=== PATIENT | male | born 1930 | race Caucasian/White ===

== ENCOUNTER 2016-10-15 16:22 | Inpatient (IN) | payer MEDICARE, BC ==
[~2016-10-15] VITALS: Ht 172.7 cm; Wt 67.5 kg
--- NOTE | ~2016-10-15 | EKG ---
PATIENT: BRANDON GRAY UNIT #: [id number] Ventricular Rate: 54 BPM Atrial Rate: 54 BPM P-R Interval: 156 ms QRS Duration: 92 ms Q-T Interval: 452 ms QTC Calculation(Bezet): 428 ms P [place]: 22 degrees Calculated R [place]: -21 degrees Calculated T [place]: -6 degrees Diagnosis Line: Sinus bradycardia with occasional Premature Diagnosis Line: ventricular complexes Diagnosis Line: Inferior infarct , age undetermined Diagnosis Line: Abnormal ECG Diagnosis Line: When compared with ECG of 17-OCT-2016 05:59, Diagnosis Line: (unconfirmed) Diagnosis Line: Inferior infarct is now Present Diagnosis Line: Confirmed by ADRIAN SUNG MD ([id number]) on 10/18/2016 Diagnosis Line: 7:54:47 PM INTERPRETING MD: PINEDA WEATHERS
--- NOTE | ~2016-10-15 | EKG ---
PATIENT: BRANDON GRAY UNIT #: [id number] Ventricular Rate: 68 BPM Atrial Rate: 68 BPM P-R Interval: 156 ms QRS Duration: 94 ms Q-T Interval: 438 ms QTC Calculation(Bezet): 465 ms P [place]: 62 degrees Calculated T [place]: 4 degrees Diagnosis Line: Sinus rhythm with frequent Premature ventricular Diagnosis Line: complexes in a pattern of bigeminy Diagnosis Line: Otherwise normal ECG Diagnosis Line: No previous ECGs available Diagnosis Line: Confirmed by ADRIAN SUNG MD ([id number]) on 10/18/2016 Diagnosis Line: 7:49:01 PM INTERPRETING MD: PINEDA WEATHERS
--- NOTE | ~2016-10-15 | US37 ---
[facility] A Service of [facility] RADIOLOGY TEXT RESULTS PATIENT: BRANDON GRAY LOCATION: [facility] 579-01 : 31 UNIT #: [id number] AGE: [address]: Tiffanie Angulo MD SEX: M ORDER DR: [id number] [facility] [address] [place], [place] [address] [id number] I MR#: [id number] Acc #: [id number] NAME: BRANDON GRAY : 1930 SEX: M STUDY DATE/TIME: 10/16/2016 16:51 UNIT: [facility] ROOM: [facility] STUDY DESCRIPTION: US Carotid W/Doppler Bilateral Attending Physician: Tiffanie Angulo M.D. Ordering Physician: Jonel Kaplan M.D. Primary Care Physician: Miguelangel Danielle M.D. MEDICAL IMAGING REPORT This report is preliminary unless electronic signature is present EXAM Carotid duplex scan, 10/16/2016. HISTORY Dizziness. FINDINGS The right common carotid artery has a small amount of heterogeneous plaque. There is a small amount of heterogeneous plaque in the right internal and external carotid arteries. The right internal carotid artery is very tortuous and, therefore, more difficult to assess. Peak systolic velocity in the mid right internal carotid artery is 47 cm/sec, with an end diastolic velocity of 13 cm/sec. The ICA:CCA ratio on the right is 1.6. Peak systolic velocity in the right external carotid artery is 46 cm/sec. The right vertebral artery is patent with antegrade flow. The left common carotid artery has a small amount of heterogeneous plaque. There is a small amount of heterogeneous plaque in the left internal and external carotid arteries. The left internal carotid artery is also very tortuous and, therefore, more difficult to assess. Peak systolic velocity in the mid left internal carotid artery is 86 cm/sec, with an end diastolic velocity of 24 cm/sec. The ICA:CCA ratio on the left is 1.9. Peak systolic velocity in the left external carotid artery is 54 cm/sec. The left vertebral artery is patent with antegrade flow. IMPRESSION Tortuous internal carotid arteries bilaterally, making assessment difficult. Plaque, but no significant stenosis (less than 50%) demonstrated in the internal or external carotid arteries on either side. Patent vertebral arteries bilaterally with antegrade flow. [facility] A Service of [facility] RADIOLOGY TEXT RESULTS PATIENT: BRANDON GRAY LOCATION: [place] [address] : [birth year] UNIT #: [id number] AGE: [address]: Tiffanie Angulo MD SEX: M ORDER DR: Dictated by... Roberto Carlos Qiu M.D. THIS IS AN ELECTRONICALLY VERIFIED REPORT Roberto Carlos Qiu M.D. at 10/19/2016 7:27 AM Yumiko TD: 10/17/2016 19:08 JOB #: [id number] MEDICAL IMAGING REPORT Page 1 of 1 COPY
--- NOTE | ~2016-10-15 | CR72 ---
[facility] A Service of [facility] RADIOLOGY TEXT RESULTS PATIENT: BRANDON GRAY LOCATION: [facility] 579-01 : 31 UNIT #: [id number] AGE: [address]: Tiffanie Angulo MD SEX: M ORDER DR: [id number] [facility] [address]. [place], [place] [address] [id number] I MR#: [id number] Acc #: [id number] NAME: BRANDON GRAY : 1930 SEX: M STUDY DATE/TIME: 10/15/2016 16:58 UNIT: [facility] ROOM: [facility] STUDY DESCRIPTION: CR Chest Single View Portable Attending Physician: Tiffanie Angulo M.D. Ordering Physician: Agus Vila M.D. Primary Care Physician: Miguelangel Danielle M.D. MEDICAL IMAGING REPORT This report is preliminary unless electronic signature is present EXAM Portable chest INDICATION Cough and congestion today COMPARISON 09/07/2014 FINDINGS Low volume inspiration. No definite acute infiltrate. Heart size upper normal. Atherosclerotic calcification of the aorta. IMPRESSION Low volume inspiration. No acute findings. Dictated by... Justyn Camarillo M.D. THIS IS AN ELECTRONICALLY VERIFIED REPORT Justyn Camarillo M.D. at 10/17/2016 5:01 PM Asad TD: 10/16/2016 11:47 JOB #: [id number] MEDICAL IMAGING REPORT Page 1 of 1 COPY
--- NOTE | ~2016-10-15 | HP ---
Unit #: [id number] #: [id number] Patient: BRANDON GRAY [id number] [place] [address] [facility]. [place], [place] [address] [id number] I MR#: [id number] NAME: BRANDON GRAY ROOM: 579 Age: 86 Sex: M Admission Date: 10/15/2016 : 1930 Attending Physician: Tiffanie Angulo M.D. Primary Care Physician: Miguelangel Danielle M.D. HISTORY AND PHYSICAL HISTORY OF PRESENT ILLNESS This is an 86-year-old white male with no significant history other than having prostate cancer a few years ago, hypothyroidism, overactive bladder. He was sent from Dr. Danielle' office, his PCP, to the hospital for bradycardia, dizziness, weakness. According to the patient, he started having problems yesterday morning. He woke up and attempted to go to the bathroom. He became very lightheaded and weak. He said he did not attempt to walk any further. He lay back down for a couple hours. When he woke up again, he had his assist him to the bathroom. He still remained lightheaded and weak. He denied any syncopal episode. They did eat a little breakfast and then got to feeling a little better. Throughout the day he was having onsets of lightheadedness and weakness. On one episode he was having a bowel movement and he felt at that time very lightheaded and weak, and he even kind of fell over into the vanity. He said he did not lose consciousness. He denies any chest pain, pain in his neck, bilateral jaws, shoulders, arms or elbows. He denies any increased lower extremity edema. He has not had any recent cough, fevers or chills. No nausea, vomiting, diarrhea. No shortness of breath. Denies any diaphoresis with these episodes. His took him to Dr. Danielle' office due to the ongoing spells. There he was found to be in sinus bradycardia. He had frequent premature atrial complexes and a bigeminal pattern. His ventricular rate on his EKG here is 62 beats per minute, but he had runs of ventricular bigeminy. Cardiology admitted the patient for further evaluation and management. PAST MEDICAL HISTORY 1. Hypothyroidism. 2. In 2007 he had a normal tilt table test by Dr. Oconnor. 3. Stress test years ago. According to the patient, told normal. 4. Overactive bladder. 5. History of prostate cancer a few years ago. 6. Quit smoking in 1954. 7. April 2015, colonoscopy was normal. 8. History of colon polyps. PAST SURGICAL HISTORY 1. Colonoscopy, 04/2015, was normal but has history of colon polyps in the past. Unit #: [id number] #: [id number] Patient: BRANDON GRAY 2. Appendectomy. 3. Hemorrhoidectomy 4. Prostate seeds implanted. 5. Cataract surgery. 6. Repair of left leg femur. HOME MEDICATIONS 1. Ditropan XL 2 tablets p.o. daily. 2. Alfuzosin ER 10 mg p.o. daily. 3. Synthroid 88 mcg p.o. daily. ALLERGIES Penicillins, sulfonamides, aspirin causes whelps, ibuprofen, Erythromycin, Trovan. SOCIAL HISTORY The patient lives with his spouse. He is very active for his age. He works out in his garden a lot. He does all of his yard work. 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 He quit smoking back in 1954. Smoked for a few years. No alcohol or illicit drug abuse. FAMILY HISTORY No known coronary artery disease in his immediate family members. REVIEW OF SYSTEMS HEENT: Denies headache or dizziness. No visual or hearing changes. No lymphadenopathy, thyromegaly. No difficulty swallowing. CARDIOVASCULAR: Denies chest pain. Denies palpitations. Denies increased lower extremity edema. PULMONARY: Denies shortness of breath. Denies paroxysmal nocturnal dyspnea or orthopnea. GI: Denies nausea, vomiting, diarrhea or abdominal pain. NEUROLOGIC: No focal weakness. PHYSICAL EXAMINATION GENERAL: On exam, Mr. Gray is an 86-year-old white male, in no acute respiratory distress. He is awake, alert and oriented. VITAL SIGNS: Blood pressure is 144/67, heart rate 60, respirations 18, temperature 98.2, O2 sats 98% on room air. NECK: Trachea is midline. No thyromegaly or lymphadenopathy. Normal carotid upstrokes. No jugular venous distention. HEART: S1, S2, irregular rate and rhythm. Has PVCs. LUNGS: Very diminished; otherwise, clear. ABDOMEN: Soft, nontender. EXTREMITIES: Pedal pulses are palpable but weak. No pedal edema. DIAGNOSTIC STUDIES LABORATORY DIAGNOSTIC DATA: Glucose is 105, BUN 27, creatinine 1.2, eGFR 54.8, sodium 138, potassium 4, chloride 108, CO2 25, calcium 8.6, total protein 7.1, albumin 3.9, bili total 0.8, AST 19, ALT 15, alkaline phosphatase 54. TSH is 3.67. WBC is 5.6, hemoglobin 12.1, hematocrit 37.6 and platelets 147. Initial cardiac enzymes - CK-MB is 2.9, troponin less than 0.05. IMAGING: Chest x-ray, preliminary report, nothing acute. CARDIOVASCULAR: EKG shows sinus bradycardia with ventricular rate 60 Unit #: [id number] #: [id number] Patient: BRANDON GRAY beats per minute with frequent premature ventricular complexes, left atrial abnormality, poor R wave progression, Q waves noted in V1 and V2. IMPRESSION 1. Dizziness, near syncope. 2. Frequent PVCs, bigeminy. 3. Hypothyroidism. 4. Reformed smoker. 5. History of prostate cancer. 6. Overactive bladder. 7. Normal colonoscopy 04/2015. 8. Normal stress test years ago. PLAN 1. The patient has been admitted for further evaluation of his dizziness and near syncopal episode. He is having frequent PVCs. There are no recorded sinus pauses or asystole on his telemetry. Will continue to monitor closely. 2. His TSH is normal. 3. We will obtain a two-D echo to evaluate LV function and valves. 4. Will also do a Lexiscan Cardiolite stress test to evaluate for any ischemic heart disease. 5. Order carotid and vertebral Dopplers with ultrasound. 6. Obtain orthostatic vitals and evaluate. 7. Will ad magnesium level to his labs today and evaluate. His blood pressure is stable at this point. The patient is allergic to aspirin, so we will hold off on aspirin at this point. No signs or symptoms of unstable angina or acute congestive heart failure. 8. Further recommendations pending per Dr. Kaplan. Thank you very much for allowing us to assist in his care. Dictated by Dinah Corona A.P.R.N. for Michael Feliciano/db TD: 10/16/2016 11:25 JOB #: [id number] HISTORY AND PHYSICAL Page 1 of 1 X Dinah Corona APRN HISTORY AND PHYSICAL
--- NOTE | ~2016-10-15 | EKG ---
PATIENT: BRANDON GRAY UNIT #: [id number] Ventricular Rate: 62 BPM Atrial Rate: 55 BPM P-R Interval: 154 ms QRS Duration: 90 ms Q-T Interval: 434 ms QTC Calculation(Bezet): 440 ms P [place]: 31 degrees Calculated R [place]: -4 degrees Calculated T [place]: 5 degrees Diagnosis Line: Sinus bradycardia with Premature ventricular Diagnosis Line: complexes Diagnosis Line: Otherwise normal ECG Diagnosis Line: When compared with ECG of 15-OCT-2016 16:33, Diagnosis Line: No significant change was found Diagnosis Line: Diagnosis Line: Confirmed by ADRIAN SUNG MD ([id number]) on 10/16/2016 Diagnosis Line: 7:25:23 PM INTERPRETING MD: PINEDA WEATHERS
--- NOTE | ~2016-10-15 | TH ---
Unit #: [id number] #: [id number] Patient: BRANDON GRAY [address] [address] [id number] I MR#: [id number] NAME: BRANDON GRAY : 1930 SEX: M STUDY DATE/TIME: UNIT: [facility] ROOM: 579 STUDY DESCRIPTION: Nuclear Study Attending Physician: Tiffanie Angulo M.D. Primary Care Physician: Miguelangel Danielle M.D. CARDIOLOGY REPORT EXAM Lexiscan Cardiolite Stress Test - Nuclear Portion PROCEDURE Using technetium 99m labeled Cardiolite, rest and stress SPECT images were obtained. Multiple SPECT images were obtained in various views including horizontal and vertical long axis and short axis views of the left ventricle. Images were obtained by gated SPECT method. The patient was administered 11.4 mCi of Cardiolite at rest. The patient was administered 34.5 mCi of Cardiolite after Lexiscan infusion was completed. On the stress images, there is normal perfusion noted. The rest images show decreased isotope activity in the inferoapical wall. Comparing rest and stress images, there is no obvious stress-induced ischemia noted. The left ventricular ejection fraction is calculated to be 46% which may be an underestimation. There is no obvious wall motion abnormality seen. CONCLUSION 1. No obvious stress-induced ischemia noted. 2. The left ventricular ejection fraction is calculated to be 46% which appears to be an underestimation. 3. No obvious wall motion abnormality seen. 4. It must be noted that the patient has significant premature ventricular complexes, ventricular bigeminy, and atrial arrhythmias noted either during the test or during recovery. Clinical correlation is requested. Dictated by... Michael Tran TD: 10/17/2016 06:00 JOB #: [id number] Unit #: [id number] #: [id number] Patient: BRANDON GRAY CARDIOLOGY REPORT Page 1 of 1 X Tiffanie Angulo MD <ELECTRONICALLY SIGNED> 10/20/16 [id number] CARDIOLOGY REPORT
--- NOTE | ~2016-10-15 | ST ---
Unit #: [id number] #: [id number] Patient: BRANDON GRAY [address] [facility]. [place] [address] [facility]. [place], [place] [address] [id number] I MR#: [id number] NAME: BRANDON GRAY : 1930 SEX: M STUDY DATE/TIME: UNIT: [facility] ROOM: 579 STUDY DESCRIPTION: Stress Test Attending Physician: Tiffanie Angulo M.D. Primary Care Physician: Miguelangel Danielle M.D. CARDIOLOGY REPORT EXAM Stress Test DESCRIPTION Baseline EKG - sinus bradycardia, heart rate 43 beats/minute, left atrial abnormality, Q waves in V1 and 2, poor R wave progression. Lexiscan is a four minute test with Lexiscan being injected within the first minute followed by Cardiolite. EKG during the test showed no acute ST depression. It did show frequent premature ventricular complexes, some runs of ventricular bigeminy, one ventricular pair. In recovery phase, patient's heart rate elevated to 108 to 120. It persisted in that range for about eight minutes. He continued to have frequent premature ventricular complexes. The [place] interval was short at 0.8. Dr. Kaplan reviewed the EKG and he appears to be in some type of AV true re-entry versus sinus tach. Converted back to sinus bradycardia with frequent premature ventricular complexes. The patient did have some complaints of bilateral shoulder pain which eased up in recovery phase. Denies any chest pain. Has some slight shortness of breath and weakness which resolved in recovery phase also. Maximum heart rate response was 120 beats/minute with a maximum blood pressure response of 176/80 mmHg. Cardiolite was injected after Lexiscan within the first minute of the test. Radionuclide test pending. Please correlate with nuclear images. Dictated by... Dinah Corona A.P.R.N. for Michael Tran/sheryl TD: 10/16/2016 13:15 JOB #: [id number] Unit #: [id number] #: [id number] Patient: BRANDON GRAY CARDIOLOGY REPORT Page 1 of 1 X Dinah Corona APRN CARDIOLOGY REPORT
--- NOTE | ~2016-10-15 | EKG ---
PATIENT: BRANDON GRAY UNIT #: [id number] Ventricular Rate: 60 BPM Atrial Rate: 46 BPM P-R Interval: 160 ms QRS Duration: 96 ms Q-T Interval: 436 ms QTC Calculation(Bezet): 436 ms P [place]: 58 degrees Calculated R [place]: -9 degrees Calculated T [place]: -6 degrees Diagnosis Line: Sinus bradycardia with frequent Premature Diagnosis Line: ventricular complexes Diagnosis Line: Otherwise normal ECG Diagnosis Line: When compared with ECG of 28-JAN-2013 11:08, Diagnosis Line: Premature ventricular complexes are now Present Diagnosis Line: QT has lengthened Diagnosis Line: Confirmed by JIMMY FIGUEROA MD ([id number]) on Diagnosis Line: 10/15/2016 7:37:48 PM INTERPRETING MD: HENRY WEATHERS
--- NOTE | ~2016-10-15 | DS ---
Unit #: [id number] #: [id number] Patient: BRANDON GRAY [id number] [place], [place] [address] [id number] I MR#: [id number] NAME: BRANDON GRAY ROOM: 579 Age: 86 Sex: M Admission Date: 10/15/2016 : 1930 Discharge Date: 10/18/2016 Attending Physician: Tiffanie Angulo M.D. Primary Care Physician: Miguelangel Danielle M.D. DISCHARGE SUMMARY DISCHARGE DIAGNOSES 1. Sick sinus syndrome, paroxysmal supraventricular tachycardia. 2. Tachybrady syndrome. 3. Cardiac catheterization 10/17/2016 showed normal coronaries. 4. Left ventricular ejection fraction 50% per echocardiogram 10/16/2016. 5. Pre-syncope. 6. Hypothyroidism. 7. Reformed smoker. 8. History of prostate cancer. 9. Overactive bladder. 10. Lexiscan Cardiolite stress test negative for ischemia. DISCHARGE MEDICATIONS 1. Amiodarone 200 mg daily x2 weeks, then 1/2 tablet once a day. 2. Ditropan 5 mg p.o. b.i.d. 3. Uroxatral 10 mg p.o. daily. 4. Synthroid 88 mcg p.o. daily. HOSPITAL COURSE This is an 86-year-old male with a prior history of prostate cancer, hypothyroidism and overactive bladder. He was sent to the ER from his PCP for bradycardia, dizziness and weakness. The patient reported incidents the prior day of lightheadedness and weakness. States at one point he felt very lightheaded and fell over into the vanity, although he did not lose consciousness at that time. He denied any chest pain, pressure or tightness. Denied recent cough, fevers or chills. His took him to his primary care doctor, and in the office he was found to be in sinus bradycardia with frequent PACs and bigeminy. In the ER his EKG showed sinus rhythm with a ventricular rate of 62 and runs of ventricular bigeminy. He was admitted for further evaluation. On October 16 he underwent a Lexiscan Cardiolite stress test, which was negative for ischemia. He did have ventricular ectopy during the test and possible reentry SVT. He was taken for a cardiac catheterization on October 17, which showed normal coronary arteries. An echocardiogram October 16 showed left ventricular hypertrophy and an LVEF of 50%. Today, he is stable and ready for discharge. He is chest pain free. He is not having any arrhythmias. He will be discharged home on amiodarone to suppress his tachybrady syndrome. If he continues to have symptoms, he will need a permanent pacemaker. PHYSICAL EXAMINATION VITAL SIGNS: Temp is 97.8, heart rate 54, respiratory rate 18, O2 sat Unit #: [id number] #: [id number] Patient: BRANDON GRAY 94%, blood pressure 142/75. GENERAL: Alert and oriented 86-year-old male resting in bed in no acute distress. CHEST: Clear to auscultation. Nonlabored respirations. HEART: S1, S2. Regular rate and rhythm. No murmurs, rubs or gallops. ABDOMEN: Soft, nontender, nondistended. EXTREMITIES: No lower extremity edema. Pedal pulses are palpable. No cyanosis. DIAGNOSTIC STUDIES LABORATORY RESULTS: Glucose 99, BUN 26, creatinine 1.2, sodium 137, potassium 4, chloride 106. TSH 3.67. Hemoglobin 11.7, hematocrit 35.5, white blood cell count 6.1, platelets 148. IMAGING STUDIES: Bilateral carotid ultrasound shows tortuous internal carotid arteries bilaterally, making this a technically difficult study, but no significant stenosis. Patent vertebral arteries bilaterally with antegrade flow. CARDIOVASCULAR STUDIES: Echocardiogram 10/16/2016 showed LVEF 50%, mild LVH, mild aortic regurgitation, moderate mitral regurgitation and tricuspid regurgitation and pulmonic regurgitation. Right ventricular systolic pressure 45 mmHg. PROCEDURES Cardiac catheterization, 10/17/2016, showed normal coronary arteries. DISCHARGE INSTRUCTIONS 1. The patient will be discharged home today. 2. He is to follow up with Dr. Kaplan on November 23, at 3 p.m. 3. The patient may continue healthy heart diet at home. 4. Post cath instructions given. 5. Continue home medications per med/rec. 6. Prescriptions have been provided for all new medications. Dictated by... Hanh Dykes APRN for Michael Feliciano/sam TD: 10/20/2016 14:33 JOB #: [id number] DISCHARGE SUMMARY Page 1 of 1 X X DISCHARGE SUMMARY
[~2016-10-15 16:22] MED LIST: ALFUZOSIN HCL E10 MG PO; ASPIRIN81 M2 PO; ASPIRIN81 MG; CEPHALEXIN250 M1 PO; DITROPAN XL5 M2 PO; DITROPAN5 MG PO; FISH OIL300 MG PO; FLOMAX; FLOMAX0.4 M1 PO; FLOMAX0.4 MG PO; MEDROL PO; OXYBUTYNIN; PERCOCET5/325 PO; SYNTHROID0.05 MG PO; TAGAMET PO; VESICARE
[2016-10-15 16:59] LABS: BASOPHIL# 0.1 X10e3 (0-0.3); EOSINOPHIL# 0.1 X10e3 (0-0.7); EOSINOPHIL% 2.5 % (0.0-7.0); HEMATOCRIT 37.6 % (38.0-50.0); HEMOGLOBIN 12.1 gm/dL (13.0-16.0); LYMPHOCYTE# 1.5 X10e3 (1.0-3.5); LYMPHOCYTE% 27.4 % (17.0-45.0); MEAN CELL VOLUME 95.1 FL (83-96); MEAN CORPUSCULAR HEMOGLOBIN 30.5 PG (28-34); MEAN CORPUSCULAR HGB CONC 32.1 g/dL (30-36); MEAN PLATELET VOLUME 8.9 FL (6.5-11.5); MONOCYTE# 0.7 X10e3 (0-1.0); MONOCYTE% 11.8 % (3.0-12.0); NEUTROPHIL# 3.2 X10e3 (1.5-7.1); NEUTROPHIL% 57.3 % (40-75); PLATELET COUNT 155 X10e3 (140-420); RED BLOOD COUNT 3.96 X10e (3.90-5.60); RED CELL DISTRIBUTION WIDTH 13.7 % (11.0-15.5); WHITE BLOOD COUNT 5.6 X10e3 (4.0-10.5)
[2016-10-15 17:01] LABS: DIFF IND NO
[2016-10-15 17:04] LABS: POC - CKMB 2.9 ng/mL (0.0-7.9); POC - TROPONIN <0.05 ng/mL (<=0.05)
[2016-10-15 17:20] LABS: BUN/CREATININE RATIO 20.76; CREATININE SERUM 1.3 mg/dL (0.6-1.4); GLOM FILT RATE Estimated 49.8 mL/min (>60)
[2016-10-15] MEDS ORDERED: ALFUZOSIN HCL E10 MG PO (19:58)
[2016-10-15] MEDS ORDERED: DITROPAN XL10 MG PO (19:58)
[2016-10-15] MEDS ORDERED: SYNTHROID88 MCG PO (19:59)
[2016-10-16 05:48] LABS: HEMATOCRIT 35.2 % (38.0-50.0); HEMOGLOBIN 11.4 gm/dL (13.0-16.0); MEAN CELL VOLUME 95.1 FL (83-96); MEAN CORPUSCULAR HGB CONC 32.6 g/dL (30-36); MEAN PLATELET VOLUME 10.3 FL (6.5-11.5); RED BLOOD COUNT 3.7 X10e (3.90-5.60); RED CELL DISTRIBUTION WIDTH 13.7 % (11.0-15.5); WHITE BLOOD COUNT 5.6 X10e3 (4.0-10.5)
[2016-10-16 06:41] LABS: BUN/CREATININE RATIO 22.5; CALCIUM SERUM 8.6 mg/dL (8.4-10.2); CREATININE SERUM 1.2 mg/dL (0.6-1.4); GLOM FILT RATE Estimated 54.8 mL/min (>60)
[2016-10-17 05:46] LABS: HEMATOCRIT 35.5 % (38.0-50.0); HEMOGLOBIN 11.7 gm/dL (13.0-16.0); MEAN CELL VOLUME 94.1 FL (83-96); MEAN CORPUSCULAR HEMOGLOBIN 31.1 PG (28-34); MEAN CORPUSCULAR HGB CONC 33.1 g/dL (30-36); MEAN PLATELET VOLUME 10.2 FL (6.5-11.5); RED BLOOD COUNT 3.77 X10e (3.90-5.60); RED CELL DISTRIBUTION WIDTH 13.9 % (11.0-15.5); WHITE BLOOD COUNT 6.1 X10e3 (4.0-10.5)
[2016-10-17 05:59] LABS: INR 1.1; PARTIAL THROMBOPLASTIN TIME 26.7 SECONDS (23.5-31.3); PROTHROMBIN TIME (PATIENT) 12.3 SECONDS (10.0-11.7)
[2016-10-17 06:19] LABS: CALCIUM SERUM 8.6 mg/dL (8.4-10.2); CREATININE SERUM 1.3 mg/dL (0.6-1.4); GLOM FILT RATE Estimated 49.8 mL/min (>60)
[2016-10-18 06:23] LABS: CREATININE SERUM 1.2 mg/dL (0.6-1.4); GLOM FILT RATE Estimated 54.8 mL/min (>60)
[2016-10-18] MEDS ORDERED: AMIODARONE PO (10:40)
== END 2016-10-18 11:33 | disposition home or self-care (01) | DRG 287 ==
LOC: CED 16:22 → C5C 17:40 → CEDOF 17:40 → CED 18:25 → C5C 20:33 → CEDOF 20:33 → C5C 10-18 11:33
PROVIDERS: Emergency Medicine; Internal Medicine Cardiovascular Disease; Nurse Practitioner
PROC: B24BZZZ Ultrasonography of Heart with Aorta (ICD-10-PCS; 2016-10-16)
PROC: 4A023N7 Measurement of Cardiac Sampling and Pressure, Left Heart, Percutaneous Approach (ICD-10-PCS; principal; 2016-10-17)
PROC: B211YZZ Fluoroscopy of Multiple Coronary Arteries using Other Contrast (ICD-10-PCS; 2016-10-17)
PROC: B215YZZ Fluoroscopy of Left Heart using Other Contrast (ICD-10-PCS; 2016-10-17)
DX: I49.5 Sick sinus syndrome (principal); I47.1 Supraventricular tachycardia; E03.9 Hypothyroidism, unspecified; R55 Syncope and collapse; Z87.891 Personal history of nicotine dependence; N32.81 Overactive bladder; Z86.010 Personal history of colon polyps; Z85.46 Personal history of malignant neoplasm of prostate; Z88.0 Allergy status to penicillin; Z88.2 Allergy status to sulfonamides; Z88.6 Allergy status to analgesic agent; Z88.1 Allergy status to other antibiotic agents
CPT/HCPCS: 36415; 71010; 78452; 80048; 82553; 82565; 83735; 84443; 84484; 85025; 85027; 85610; 85730; 93005; 93017; 93306; 93880; 99285; A9500; C1769; C1887; C1894; J1644; J2250; J2785; J3010